=== PATIENT | female | born 1945 | race Two or more races ===

== ENCOUNTER → 2018-08-04 | Day surgery (SDC) | payer MEDICARE ==
[~2018-08-04] MED LIST: ASCO10002 PO; ATOR40TA59 PO; CALC-102 PO; CALC1TAB75 PO; FISH1CAP PO; GLYCOPYRROLATE 1 MG/5 ML SYRINGE. ONE; IV RINGERS,LACTATED 1000ML 1,000 ML IV SCH; LINA5TAB PO; LISI1TAB7 PO; MELO7.5T29 PO; METF500T16 PO; PROPOFOL 40 ML IV ONE; Pantoprazole PO
[2018-08-04 11:30] VITALS: BP 125/65
[2018-08-04 12:19] LABS: BASO # 0.1 x10^3/uL (0.0-0.2); BASO % 1 % (0-3); EOS # 0.1 x10^3/uL (0.0-0.7); EOS % 2 % (0-3); HEMATOCRIT 28.6 % (36.0-47.0); HEMOGLOBIN 9.8 g/dL (12.0-15.5); LYMPH # 0.8 x10^3/uL (1.0-4.8); LYMPH % 13 % (24-48); MEAN CORPUSCULAR HEMOGLOBIN 25 pg (25-35); MEAN CORPUSCULAR HGB CONC 34 g/dL (31-37); MEAN CORPUSCULAR VOLUME 74 fL (79-100); MONO # 0.5 x10^3/uL (0.0-1.1); MONO % 9 % (0-9); NEUT # 4.6 x10^3uL (1.8-7.7); NEUT % 75 % (31-73); PLATELET COUNT 368 x10^3/uL (140-400); RED BLOOD COUNT 3.88 x10^6/uL (3.50-5.40); RED CELL DISTRIBUTION WIDTH 24.3 % (11.5-14.5); WHITE BLOOD COUNT 6.2 x10^3/uL (4.0-11.0)
[2018-08-04 13:26] LABS: ANISOCYTOSIS SLIGHT; PLT ESTIMATE ADEQUATE (ADEQUATE); POLYCHROMASIA PRESENT
--- NOTE | 2018-08-07 18:08 | PATHOLOGY ---
[facility] Accession Number: [id number] . 01 Material submitted: . HEPATIC FLEXURE MASS . 01 Clinical history: . Anemia, heme positive stools . 02 Diagnosis: Colon biopsies, hepatic flexure mass: - ADENOCARCINOMA, MODERATELY TO FOCALLY POORLY DIFFERENTIATED. (JPM:laura; 08/07/2018) QMS/08/07/2018 . 02 Comment: Sections of the hepatic flexure mass biopsy reveal malignant glands irregularly infiltrating an inflamed, reactive desmoplastic stroma. The malignant glands focally have a gland within gland cribriform architecture. Focally, the tumor cells are present in irregular solid nests showing little glandular formation. The morphologic findings are supportive of a diagnosis of an invasive moderately to poorly differentiated colorectal adenocarcinoma. The case is also examined by Dr. Camacho, who concurs with the diagnosis. (JPM:laura; 08/07/2018 . 02 Electronically signed: . Jerry Fajardo MD, Pathologist NPI- [id number] . 01 Gross description: . Received in formalin labeled "Mcintosh, Isadora, hepatic flexure mass," are multiple segments of weber soft tissue measuring 1.9 x 0.5 x 0.1 cm in aggregate dimensions. The specimen is filtered and entirely submitted in cassette A1. (TSD; 08/04/2018) TOB/TOB . 02 Pathologist provided ICD-10: C18.3 . 02 CPT . 477006 Specimen Comment: A courtesy copy of this report has been sent to Specimen Comment: [phone], . Specimen Comment: Report sent to / DR GLASS Performed at: [address] [place] [id number] MD Milton Amos MD Phone: [phone] Performed at: [address] [id number] MD Jerry Fajardo MD Phone: [phone]
== END | disposition home or self-care (01) ==
LOC: ENDOS 10:00
PROVIDERS: ATTEND Internal Medicine Gastroenterology
DX: C18.3 Malignant neoplasm of hepatic flexure (principal); K64.0 First degree hemorrhoids; K29.50 Unspecified chronic gastritis without bleeding; D50.0 Iron deficiency anemia secondary to blood loss (chronic); I10 Essential (primary) hypertension; E11.9 Type 2 diabetes mellitus without complications; Z90.49 Acquired absence of other specified parts of digestive tract; Z90.710 Acquired absence of both cervix and uterus; Z80.3 Family history of malignant neoplasm of breast; Z88.8 Allergy status to other drugs, medicaments and biological substances; Z79.899 Other long term (current) drug therapy; Z79.84 Long term (current) use of oral hypoglycemic drugs
CPT/HCPCS: 36415; 43235; 45380; 82378; 85025; 88305; J2704; J3490; 45385